=== PATIENT | male | born 1955 | race Caucasian/White ===

== ENCOUNTER → 2021-04-14 | Outpatient (CLI) | payer OTHER | END | disposition home or self-care (01) | LOC: ROC 04-12 09:11 | PROVIDERS: ATTEND Radiology Radiation Oncology | DX: C01 Malignant neoplasm of base of tongue (principal) | CPT/HCPCS: 99214; G0463 ==

== ENCOUNTER → 2021-08-17 | Outpatient (CLI) | payer OTHER | END | disposition home or self-care (01) | LOC: ROC 07:47 | PROVIDERS: ATTEND Radiology Radiation Oncology | DX: Z08 Encounter for follow-up examination after completed treatment for malignant neoplasm (principal); Z85.810 Personal history of malignant neoplasm of tongue | CPT/HCPCS: 99213; G0463 ==